=== PATIENT | male | born 1955 | race Caucasian/White ===

== ENCOUNTER 2017-11-22 07:49 | Day surgery (SDC) | payer BC ==
--- NOTE | 2017-11-22 08:56 | PCM.PREANE ---
Preanesthetic Assessment - Anesthesia/Transfusion/Family Hx Anesthesia History: Prior Anesthesia Without Reaction Family History of Anesthesia Reaction: No - Review of Systems General: No Symptoms Pulmonary: Other (COPD, ) Cardiovascular: Chest Pain, Palpitations, Other (factor V leiden deficiency) Gastrointestinal: Other (heart burn and reflux) Neurological: No Symptoms Other: Reports: None - Physical Assessment NPO Status Date: 11/21/17 NPO Status Time: 05:30 (6 oz of water) Pulse: 69 O2 Sat by Pulse Oximetry: 96 Respiratory Rate: 16 Blood Pressure: 154/99 Temperature: 36.6 C Weight: 83 kg ASA Class: 2 Mental Status: Alert & Oriented x3 Airway Class: Mallampati = 2 Dentition: Reports: Normal Dentition, Missing Tooth/Teeth Thyro-Mental Finger Breadths: 3 Mouth Opening Finger Breadths: 3 ROM/Head Extension: Full Lungs: Clear to Auscultation, Normal Respiratory Effort Cardiovascular: Regular Rate, Regular Rhythm - Blood Blood Available: No Product(s) Available: None - Anesthesia Plan Pre-Op Medication Ordered: None - Acknowledgements Anesthesia Type Planned: MAC Pt an Appropriate Candidate for the Planned Anesthesia: Yes Alternatives and Risks of Anesthesia Discussed w Pt/Guardian: Yes Pt/Guardian Understands and Agrees with Anesthesia Plan: Yes
[2017-11-22] MEDS ORDERED: Midazolam 1 MG/ML 2 ML SDV ONE (09:41)
[2017-11-22] MEDS ORDERED: Propofol 200 MG/20 ML SDV ONE (09:41)
[2017-11-22] MEDS ORDERED: Lidocaine 1% 4 ML ONE (09:41)
--- NOTE | 2017-11-22 10:02 | PCM.OPNOTE ---
- General Post-Op/Procedure Note Date of Surgery/Procedure: 11/22/17 Operative Procedure(s): egd w bx Pre Op Diagnosis: epigastric pain Post-Op Diagnosis: Same Anesthesia Technique: MAC Primary Surgeon: Cody Jo EBL in mLs: 0 Complications: None Condition: Good
--- NOTE | 2017-11-22 10:58 | PCM48HPAN ---
Post Anesthesia Note - EVALUATION WITHIN 48HRS OF ANESTHETIC Vital Signs in Normal Range: Yes Patient Participated in Evaluation: Yes Respiratory Function Stable: Yes Airway Patent: Yes Cardiovascular Function Stable: Yes Hydration Status Stable: Yes Pain Control Satisfactory: Yes Nausea and Vomiting Control Satisfactory: Yes Mental Status Recovered: Yes
[2017-11-22] MEDS ORDERED: Lidocaine 1%/Sod Bicarbonate in NS 8.4% 1 ML Syringe IDERM PRN (11:10)
[2017-11-22] MEDS ORDERED: Sodium Chloride 0.9% 10 ML Syringe FLUSH PRN (11:10)
[2017-11-22] MEDS ORDERED: Lactated Ringers 1,000 ML IV SCH (11:15)
--- NOTE | 2017-11-22 16:06 | OR ---
DATE OF OPERATION: 11/22/2017 SURGEON: Cody Jo MD PREOPERATIVE DIAGNOSIS: Epigastric pain. POSTOPERATIVE DIAGNOSIS: Epigastric pain. OPERATION PERFORMED: Esophagogastroduodenoscopy with biopsy done under IV sedation. FINDINGS: The 2nd portion of the duodenum, duodenal bulb, and pyloric channel were unremarkable. Z-line was sharp with a small sliding hiatal hernia, incompetent hiatus, and balance of the esophagus was normal. However, the antrum showed some erythema and an early-staged ulcer between the lesser and greater curvature of the stomach. This was biopsied. It appeared to be on the posterior aspect of the stomach. Body, cardia, and fundus of the stomach were unremarkable. DESCRIPTION OF PROCEDURE: The patient was taken to the endoscopy room, placed in a supine position, connected to monitoring equipment, given IV sedation, and placed in the left lateral position. Bite block was placed, and video Olympus gastroscope placed in the posterior oropharynx under direct vision, threaded past the cricopharyngeus, down the esophagus, into the stomach. Stomach was insufflated and scope passed through the second portion of the duodenum and then slowly withdrawn, showing normal 2nd portion of the duodenum and duodenal bulb. However, the antrum showed redness and a small superficial ulcer in the antrum which was biopsied. This was sent to Pathology in a labeled container. Body, cardia, and fundus of stomach unremarkable. J-maneuver showed incompetent hiatus with a sliding hiatal hernia. GE junction was located at about 38 to 40 cm and was sharp. Rest of the esophagus was unremarkable. The patient tolerated the procedure, sent to recovery room in a stable condition, and will be followed up in the clinic. ANESTHESIA: ESTIMATED BLOOD LOSS: MMODAL /[id number]
== END 2017-11-22 11:13 | disposition home or self-care (01) ==
LOC: JD.SDS 07:49
PROVIDERS: ATTEND Surgery
DX: K44.9 Diaphragmatic hernia without obstruction or gangrene (principal); J44.9 Chronic obstructive pulmonary disease, unspecified; E78.5 Hyperlipidemia, unspecified; K21.9 Gastro-esophageal reflux disease without esophagitis; Z88.0 Allergy status to penicillin; Z88.8 Allergy status to other drugs, medicaments and biological substances; Z79.899 Other long term (current) drug therapy; Z87.891 Personal history of nicotine dependence
CPT/HCPCS: 43239; 88305; J2001; J2250; J7120; J2704